=== PATIENT | female | born 1995 | race African-American/Black ===

== ENCOUNTER 2020-10-29 23:41 | Emergency (ER) | payer OTHER, MEDICAID ==
[~2020-10-29] VITALS: Ht 162.6 cm; Wt 55.0 kg
[2020-10-30] MEDS ORDERED: ONDANSETRON 4MG ODT PO ONE (00:30)
[2020-10-30 00:33] LABS: BASOPHILS % 1.3 % (0.0-2.0); EOSINOPHILS % 0.2 % (0.0-5.0); HEMATOCRIT. 35.6 % (36.0-48.0); HEMOGLOBIN. 12.1 g/dL (12.0-16.0); LYMPHOCYTES % 32.4 % (20.0-50.0); MEAN CORPUSCULAR HEMOGLOBIN 28.8 pg (28.0-32.0); MEAN CORPUSCULAR VOLUME 84.4 fL (81.0-99.0); MEAN PLATELET VOLUME 8.5 fl (7.4-10.4); MONOCYTES % 9.6 % (2.0-8.0); NEUTROPHILS % 56.5 % (40.0-76.0); PLATELET 180 x1000/uL (130-400); RED BLOOD CELL COUNT 4.22 mill/uL (4.2-5.4); RED CELL DISTRIBUTION WIDTH 13.4 % (11.6-14.6)
[2020-10-30 00:38] LABS: CLARITY URINE CLEAR (CLEAR); COLOR URINE YELLOW (YELLOW); KETONES URINE NEGATIVE (NEGATIVE); LEUKOCYTE ESTERASE URINE NEGATIVE (NEGATIVE); NITRITE URINE NEGATIVE (NEGATIVE); OCCULT BLOOD URINE NEGATIVE (NEGATIVE); PROTEIN URINE NEGATIVE (NEGATIVE); SPECIFIC GRAVITY URINE 1.018 (1.005-1.030)
[2020-10-30 00:42] LABS: CHLORIDE 109 mEq/L (98-107)
[2020-10-30 00:44] LABS: HCG SCREEN NEGATIVE
[2020-10-30 00:56] LABS: *AMPHETAMINES SCREEN URINE NEGATIVE (NEGATIVE); *BARBITURATES SCREEN URINE NEGATIVE (NEGATIVE); *BENZODIAZEPINES SCREEN URINE NEGATIVE (NEGATIVE); *COCAINE SCREEN URINE NEGATIVE (NEGATIVE)
[2020-10-30 00:57] LABS: METHADONE URINE SCREEN NEGATIVE (NEGATIVE); OPIATES URINE SCREEN NEGATIVE (NEGATIVE); PHENCYCLIDINE URINE SCREEN NEGATIVE (NEGATIVE)
[2020-10-30 00:59] LABS: CANNABINOID URINE SCREEN PRESUMTIVE POSITIVE (NEGATIVE)
[2020-10-30 01:42] VITALS: BP 102/62
== END 2020-10-30 01:50 | disposition home or self-care (01) ==
LOC: ER 23:41
DX: R11.0 Nausea (principal); F12.10 Cannabis abuse, uncomplicated
CPT/HCPCS: 36415; 80053; 80305; 81003; 84703; 85025; 99283; Q0162

== ENCOUNTER 2020-10-30 16:14 | Emergency (ER) | payer OTHER, MEDICAID ==
[~2020-10-30] VITALS: Ht 157.5 cm; Wt 54.0 kg
[2020-10-30 16:19] VITALS: BP 95/54
== END 2020-10-30 21:09 | disposition left against medical advice (07) ==
LOC: ER 16:14
DX: Z53.21 Procedure and treatment not carried out due to patient leaving prior to being seen by health care provider (principal)